=== PATIENT | female | born 1955 | race Caucasian/White ===

== ENCOUNTER → 2017-06-14 | Outpatient (CLI) | payer BC ==
[~2017-06-14] MED LIST: BENTYL10 MG PO; HYDROCODON-ACE1 EAC7 PO; PRILOSEC20 MG PO; TYLENOL EXTRA500 MG PO
== END | disposition home or self-care (01) ==
LOC: CDC 09:58
DX: Z01.810 Encounter for preprocedural cardiovascular examination (principal); R19.01 Right upper quadrant abdominal swelling, mass and lump; K21.9 Gastro-esophageal reflux disease without esophagitis; C50.911 Malignant neoplasm of unspecified site of right female breast; E78.5 Hyperlipidemia, unspecified; J04.0 Acute laryngitis; F17.200 Nicotine dependence, unspecified, uncomplicated; J38.1 Polyp of vocal cord and larynx; R94.31 Abnormal electrocardiogram [ECG] [EKG]
CPT/HCPCS: 93000

== ENCOUNTER 2017-06-18 08:59 | Day surgery (SDC) | payer BC ==
[~2017-06-18] VITALS: Ht 160 cm; Wt 55.8 kg
[~2017-06-18 08:59] MED LIST changes: -HYDROCODON-ACE1 EAC7 PO
[2017-06-18 09:47] VITALS: BP 111/76
[2017-06-18] MEDS ORDERED: HYDROCODON-ACE1 EAC7 PO (11:53)
[2017-06-18 13:50] VITALS: BP 111/61
[2017-06-18 14:47] VITALS: BP 117/62
[2017-06-18 16:06] VITALS: BP 124/57
== END 2017-06-18 16:18 | disposition home or self-care (01) ==
LOC: SDC 08:59
PROC: 0FT44ZZ Resection of Gallbladder, Percutaneous Endoscopic Approach (ICD-10-PCS; principal; 2017-06-18)
DX: K80.12 Calculus of gallbladder with acute and chronic cholecystitis without obstruction (principal); J44.9 Chronic obstructive pulmonary disease, unspecified; E78.5 Hyperlipidemia, unspecified; F17.200 Nicotine dependence, unspecified, uncomplicated; Z85.3 Personal history of malignant neoplasm of breast; Z80.3 Family history of malignant neoplasm of breast
CPT/HCPCS: 87070; 87075; 87205; 88304; J0131; J2310; J3010; S0074